=== PATIENT | male | born 1955 | race African-American/Black ===

== ENCOUNTER → 2020-04-12 | Outpatient (CLI) | payer OTHER ==
[~2020-04-12] MED LIST: ALLO100T PO
== END ==
LOC: CARD 08:30
PROVIDERS: ATTEND Internal Medicine Interventional Cardiology
DX: R07.2 Precordial pain (principal); R06.02 Shortness of breath; I73.9 Peripheral vascular disease, unspecified; E11.51 Type 2 diabetes mellitus with diabetic peripheral angiopathy without gangrene; I10 Essential (primary) hypertension; E78.01 Familial hypercholesterolemia; I07.1 Rheumatic tricuspid insufficiency
CPT/HCPCS: 93306

== ENCOUNTER → 2020-04-15 | Outpatient (CLI) | payer OTHER ==
[~2020-04-15] VITALS: Ht 172 cm; Wt 102.0 kg
[~2020-04-15] MED LIST changes: +CATHETER FLUSH 10 ML SYR IV PRN; +REGADENOSON 0.4 MG/5 ML SYR (LEXISCAN) IV ONE
[2020-04-15 09:03] VITALS: BP 171/95
--- NOTE | 2020-04-17 14:18 | Cardiology Stress Test Report ---
Stress Test Report Type of NM Stress Test: Test Type: LEXISCAN 0.4MG/5ML Date of Procedure/Referring: Date of Procedure: April 15, 2020 PCP Eladio Gibbs MD Admitting Physician Center/[facility] Indications: Chest pain Baseline Heart Rate: 70 Baseline Blood Pressure: Blood Pressure Systolic: 171 Blood Pressure Diastolic: 95 Baseline EKG: Baseline EKG: Sinus rhythm Summary & Conclusion: Summary: The patient was brought to the stress lab after informed consent was taken. Stress test was performed according to the Lexiscan protocol. 0.4 mg of IV Lexiscan was given. Low-grade exercise was performed. Baseline EKG showed sinus rhythm at 70 BPM and blood pressure 153/76 mmHg. Maximum heart rate of 82 bpm and blood pressure 177/84 mmHg. Patient did not have any chest pain, arrhythmias or ST segment changes during the stress test. 10.64 mCi of Myoview were given for rest imaging and 32.2 mCi of Myoview given for stress imaging. Transient ischemic dilatation score 1.02, EF 72 percent. Normal wall motion. Normal myocardial perfusion imaging during rest and stress. Conclusion: Pharmacological stress test was negative for ischemia. Normal LV function with no wall motion abnormalities. Normal myocardial perfusion imaging during rest and stress. Eladio GIBBS MD April 17, 2020 14:18
== END ==
LOC: CARD 07:57
PROVIDERS: ATTEND Internal Medicine Interventional Cardiology
DX: R07.2 Precordial pain (principal); E11.51 Type 2 diabetes mellitus with diabetic peripheral angiopathy without gangrene; I10 Essential (primary) hypertension; I73.9 Peripheral vascular disease, unspecified; E78.01 Familial hypercholesterolemia; R06.02 Shortness of breath
CPT/HCPCS: 78452; 93017

== ENCOUNTER 2021-12-16 05:28 | Outpatient (RCR) | payer MEDICARE, OTHER ==
[~2021-12-16] VITALS: Ht 172.7 cm; Wt 100.2 kg
[~2021-12-16 05:28] MED LIST changes: +AMLO-251 PO; +ASPI-999 PO; +ATOR80TA76 PO; -CATHETER FLUSH 10 ML SYR IV PRN; +GBPN600T PO; +LISI40TA9 PO; +METO100T12 PO; +MULT-1136 PO; +OMEP40CA6 PO; -REGADENOSON 0.4 MG/5 ML SYR (LEXISCAN) IV ONE
== END 2021-12-19 10:35 | disposition home or self-care (01) ==
LOC: PREOP 05:28
PROVIDERS: ATTEND Surgery
DX: Z01.812 Encounter for preprocedural laboratory examination (principal); Z12.11 Encounter for screening for malignant neoplasm of colon; K21.9 Gastro-esophageal reflux disease without esophagitis; Z20.822 Contact with and (suspected) exposure to COVID-19
CPT/HCPCS: 87635

== ENCOUNTER 2021-12-20 08:03 | Day surgery (SDC) | payer MEDICARE, OTHER ==
[~2021-12-20] VITALS: Ht 172.7 cm; Wt 100.2 kg
[2021-12-20] MEDS ORDERED: LACTATED RINGERS 1,000 ML IV ONE (08:07)
[2021-12-20] MEDS ORDERED: LACTATED RINGERS 1,000 ML IV STA (08:09)
[2021-12-20] MEDS ORDERED: HURRICAINE EXT TUBE (BENZOCAINE) XX PRN (08:15)
[2021-12-20 08:28] VITALS: BP 157/95
[2021-12-20] MEDS ORDERED: PROPOFOL INJECTION 50 ML IV ONE (08:32)
--- NOTE | 2021-12-20 08:36 | Progress Note-Pre Operative ---
Pre-Operative Progress Note H&P Reviewed The H&P was reviewed, patient examined and no changes noted. Date Seen by Provider: Dec 20, 2021 Time Seen by Provider: 08:36 Date H&P Reviewed: Dec 20, 2021 Time H&P Reviewed: 08:36 Pre-Operative Diagnosis: family hx colon cancer, gerd TRINIDAD DYER DO Dec 20, 2021 08:36
[2021-12-20 09:15] VITALS: BP 103/67
[2021-12-20 09:20] VITALS: BP 130/74
--- NOTE | 2021-12-20 09:25 | Progress Note-Post Operative ---
Post-Operative Progess Note Surgeon (s)/Corporate Financial Analyst (s) Surgeon TRINIDAD DYER DO Corporate Financial Analyst: na Pre-Operative Diagnosis family hx colon cancer, gerd Post-Operative Diagnosis reflux esophagitis, sigmoid polyp Procedure & Operative Findings Date of Procedure 12/20/21 Procedure Performed/Findings egd c biopsies colonoscopy c snare polypectomy and santy inking Anesthesia Type per senior validation engineer Estimated Blood Loss Estimated blood loss (mL): none Specimens/Packing Specimens Removed antrum, ge, sigmoid polyp TRINIDAD DYER DO Dec 20, 2021 09:25
--- NOTE | 2021-12-20 09:28 | Discharge Inst-Simple/Standard ---
Discharge Inst-Standard Patient Instructions/Follow Up Plan of Care/Instructions/FU: 2 weeks Lars Activity as Tolerated: Yes Discharge Diet: Regular Diet TRINIDAD DYER DO Dec 20, 2021 09:28
[2021-12-20 09:30] VITALS: BP 130/74
[2021-12-20 09:48] VITALS: BP 130/74
--- NOTE | 2021-12-20 10:19 | Anesthesia-General Post-Op ---
MAC Patient Condition Mental Status/LOC: Same as Preop Cardiovascular: Satisfactory Nausea/Vomiting: Absent Respiratory: Satisfactory Pain: Controlled Complications: Absent Post Op Complications Complications None Follow Up Care/Instructions Patient Instructions None needed. Anesthesiology Discharge Order Discharge Order Patient is doing well, no complaints, stable vital signs, no apparent adverse anesthesia problems. No complications reported per nursing. JAYSON SOLIS CRNA Dec 20, 2021 10:19
--- NOTE | 2021-12-20 15:50 | OPERATIVE REPORT ---
DATE OF SERVICE: 12/20/2021 PREOPERATIVE DIAGNOSES: Family history of colon cancer. Gastroesophageal reflux disease. POSTOPERATIVE DIAGNOSES: Reflux esophagitis, sigmoid colon polyp. PROCEDURE: EGD with biopsies, colonoscopy with snare polypectomy and Ayesha inking. SURGEON: Trinidad Sousa DO. ANESTHESIA: Per [employer] LIGHT. ESTIMATED BLOOD LOSS: None. COMPLICATIONS: None. INDICATIONS: The patient is a 66-year-old male with family history of colon cancer and reflux. He understands risks and benefits of procedure and wished to proceed. Consent was signed in the chart. DESCRIPTION OF PROCEDURE: The patient was taken to endoscopy suite, placed in left lateral recumbent position. Timeout was performed. Scope was inserted in mouth, down the esophagus, stomach and into the duodenum without difficulty. There were no polyps, masses or ulcerations within the duodenum. Scope was slowly retracted back into the stomach where it was further insufflated. No polyps, masses or ulcerations. Biopsy of the antrum was obtained. Scope was retroflexed noting no other pathology. Scope was returned to its normal position, slowly withdrawn to distal esophagus. Biopsy of GE junction was obtained. Evidence of some reflux esophagitis present. Scope was slowly retracted back to completely remove, noting no other pathology. Digital rectal exam was performed. No palpable polyps, masses or ulcerations. Scope was inserted in the rectum and advanced all the way to cecum with minimal difficulty. Prep was adequate with irrigation and suction. Scope was slowly retracted back. No polyps, masses or ulcerations within the cecum, ascending, transverse and descending colon. In the sigmoid colon, a polyp was present, which had some appearance of some previous bleeding present. Snare polypectomy was performed and specimen was obtained. Just distal to the area, Ayesha ink was injected in two different locations for a total of 2 mL, 1 mL in each location. Scope was then continuously retracted back into the rectum, where it was also retroflexed noting no other pathology. Scope was returned to its normal position, slowly withdrawn until completely removed. The patient tolerated the procedure well without any complications, taken to recovery room in stable condition. RECOMMENDATIONS: The patient will continue on current medications. We will evaluate the pathology in 2 weeks. We would likely repeat colonoscopy in one year to reevaluate the area of the polyp. Job ID: [id number] DocumentID: [id number] Dictated Date: 12/20/2021 09:33:04 Lens Mold Setter Date: 12/20/2021 15:49:37 Dictated By: TRINIDAD SOUSA DO
== END 2021-12-20 09:50 | disposition home or self-care (01) ==
LOC: ENDO 08:03
PROVIDERS: ATTEND Surgery
DX: Z12.11 Encounter for screening for malignant neoplasm of colon (principal); K21.00 Gastro-esophageal reflux disease with esophagitis, without bleeding; K63.5 Polyp of colon; Z80.0 Family history of malignant neoplasm of digestive organs; E11.9 Type 2 diabetes mellitus without complications; I10 Essential (primary) hypertension; E78.49 Other hyperlipidemia; E78.01 Familial hypercholesterolemia; K42.9 Umbilical hernia without obstruction or gangrene; Z87.891 Personal history of nicotine dependence; Z79.899 Other long term (current) drug therapy; E66.9 Obesity, unspecified; Z68.33 Body mass index [BMI] 33.0-33.9, adult
CPT/HCPCS: 88305

== ENCOUNTER 2022-01-26 05:36 | Outpatient (CLI) | payer MEDICARE ==
[~2022-01-26] VITALS: Ht 172.7 cm; Wt 98.6 kg
== END 2022-01-26 09:59 | disposition home or self-care (01) ==
LOC: PREOP 05:36
PROVIDERS: ATTEND Surgery
DX: Z01.818 Encounter for other preprocedural examination (principal)

== ENCOUNTER 2022-02-02 08:36 | Day surgery (SDC) | payer MEDICARE ==
[2022-02-02] VITALS (11 sets, daily range): BP systolic 122–150; BP diastolic 66–90
[~2022-02-02] VITALS: Ht 172 cm; Wt 98.6 kg
[2022-02-02] MEDS ORDERED: ceFAZolin 2 GM IV Premixed 50 ML IV ONE (09:15)
--- NOTE | 2022-02-02 09:41 | Progress Note-Pre Operative ---
Pre-Operative Progress Note H&P Reviewed The H&P was reviewed, patient examined and no changes noted. Date Seen by Provider: Feb 02, 2022 Time Seen by Provider: 09:40 Date H&P Reviewed: Feb 02, 2022 Time H&P Reviewed: 09:40 Pre-Operative Diagnosis: umbilical hernia TRINIDAD DYER DO Feb 02, 2022 09:41
[2022-02-02] MEDS: LACTATED RINGERS 1,000 ML IV PRN ×2 (09:45→12:53)
[2022-02-02] MEDS ORDERED: MIDAZOLAM 2 MG/2 ML (VERSED) VIAL ONE (11:44)
[2022-02-02] MEDS ORDERED: fentaNYL INJ 100 MCG/2 ML AMP ONE ×2 (11:44→14:04)
[2022-02-02] MEDS ORDERED: LIDOCAINE/EPI 1%-1:200,000 (XYLOCAINE) 30 ML VIAL ONE (11:46)
[2022-02-02] MEDS ORDERED: ONDANSETRON 4 MG/2 ML (SDV) Z0FRAN ONE (13:05)
[2022-02-02] MEDS ORDERED: LIDOCAINE PF 2% 5 ML (XYLOCAINE) VIAL ONE (13:05)
[2022-02-02] MEDS ORDERED: PHENYLEPHRINE 100 MCG/ML 10 ML (ANESTHESIA) SYR ONE (13:05)
[2022-02-02] MEDS ORDERED: ROCURONIUM 10 MG/ML 5 ML SYRINGE IV ONE (13:05)
[2022-02-02] MEDS ORDERED: proPOfol 200 MG/20 ML (DIPRIVAN) VIAL IV ONE (13:05)
[2022-02-02] MEDS ORDERED: GLYCOPYRROLATE 0.2 MG/ML (ROBINUL) 2 ML VIAL ONE (14:10)
[2022-02-02] MEDS ORDERED: NEOSTIGMINE 3 MG/3 ML VIAL ONE (14:10)
[2022-02-02] MEDS ORDERED: SEVOFLURANE (ULTANE) 15 ML INHAL SOLN ONE (14:10)
--- NOTE | 2022-02-02 14:25 | Anesthesia-General Post-Op ---
General Patient Condition Mental Status/LOC: Same as Preop Cardiovascular: Satisfactory Nausea/Vomiting: Absent Respiratory: Satisfactory Pain: Controlled Complications: Absent Post Op Complications Complications None Follow Up Care/Instructions Patient Instructions None needed. Anesthesia/Patient Condition Patient Condition Patient is doing well, no complaints, stable vital signs, no apparent adverse anesthesia problems. No complications reported per nursing. GIBRAN SERRANO CRNA Feb 02, 2022 14:25
[2022-02-02] MEDS ORDERED: HYDROmorphone 2 MG/ML VIAL (DILAUDID) IV ONE (14:30)
[2022-02-02] MEDS ORDERED: ONDANSETRON 4 MG/2 ML (SDV) Z0FRAN IVP PRN (14:30)
--- NOTE | 2022-02-02 14:30 | Progress Note-Post Operative ---
Post-Operative Progess Note Surgeon (s)/Manager Photography (s) Surgeon TRINIDAD DYER DO Manager Photography: Dr. Alex Pre-Operative Diagnosis umbilical hernia Post-Operative Diagnosis umbilical and ventral hernia Procedure & Operative Findings Date of Procedure 02/02/22 Procedure Performed/Findings robotic incarcerated umbilical and ventral hernia repair Anesthesia Type general Estimated Blood Loss Estimated blood loss (mL): minimal Specimens/Packing Specimens Removed na TRINIDAD DYER DO Feb 02, 2022 14:30
[2022-02-02] MEDS ORDERED: DOCU-143 PO (14:35)
[2022-02-02] MEDS ORDERED: ACHD5005 PO (14:35)
--- NOTE | 2022-02-02 14:37 | Discharge Inst-Simple/Standard ---
Discharge Inst-Standard Discharge Medications New, Converted or Re-Newed RX: Transmitted to Pharmacy Patient Instructions/Follow Up Plan of Care/Instructions/FU: 2 weeks héctor Activity as Tolerated: No Discharge Diet: Regular Diet Other Inst to Patient Follow up Appt: Make appointment for 2 week. Instructions: No lifting greater than 10 pounds. No strenuous activity. May shower in 24 hours, no tub bath or soaking. Use incentive spirometer at home as directed. No Smoking Skin/Wound Care: You have special glue over your incision that will fall off on it's own. Symptoms to Report: Appetite Changes, Extremity Discoloration, Numbness/Tingling, Swelling Increased, Bleeding Excessive, Eyesight Changes, Pain Increased, Urine Color Change, Constipation(Persistent), Fever over 101 degree F, Pain/Pressure in chest, Urinating Difficulty, Cough Up/Vomit Blood, Heart Beat Irreg/Pounding, Pain/Pressure in jaw, Vaginal Bleeding Increase, Cramps in feet or legs, Lightheadedness, Pain/Pressure in shoulder, Diarrhea(Persistent), Memory Changes Suddenly, Questions/Concerns, Weight gain consecutive days, Dizziness/Fainting, Nausea/Vomiting, Shortness of Breath, Weight gain over 2 pounds If questions or concerns contact your physician Or seek help at emergency department. TRINIDAD DYER DO Feb 02, 2022 14:37
[2022-02-02] MEDS ORDERED: HYDROcodone/APAP 5 MG/325 MG (LORTAB) TAB ONE (15:25)
[2022-02-02] MEDS ORDERED: HYDROcodone/APAP 5 MG/325 MG (LORTAB) TAB PO ONE (15:30)
--- NOTE | 2022-02-03 00:46 | OPERATIVE REPORT ---
DATE OF SERVICE: 02/02/2022 PREOPERATIVE DIAGNOSIS: Umbilical hernia, incarcerated. POSTOPERATIVE DIAGNOSES: Incarcerated umbilical hernia. Incarcerated ventral hernia. PROCEDURE: Robotic incarcerated umbilical and incarcerated ventral hernia repair with mesh. SURGEON: Trinidad Sousa DO THERMITE BOMB LOADER: Dr. Alex, assisted in retraction, dissection and closure. ANESTHESIA: General. ESTIMATED BLOOD LOSS: Minimal. COMPLICATIONS: None. INDICATIONS: The patient is a 66-year-old male with umbilical hernia. He understands risks and benefits of procedure and wished to proceed. Consent was signed in the chart. DESCRIPTION OF PROCEDURE: The patient was taken to the operating suite, was prepped and draped in sterile fashion. Timeout was performed. Local anesthetic was infiltrated in left upper quadrant. An 11-blade scalpel was used to make a small skin incision. Cautery was used to dissect down to the fascia, which was scored. The muscle was divided. The posterior fascia was then divided, and the abdomen was then entered. A 12 mm balloon trocar was inserted, and pneumoperitoneum was achieved. Scope was inserted and under visualization of the laparoscope, two 8 mm trocars were placed along the left side of the abdomen. The abdomen was inspected. There was umbilical hernia, which had fat-containing hernia and also just above this was an internal hernia, which had fat containing contents as well. The robot was then docked. The scissors with cautery were then used to begin to be dividing the falciform ligament and reducing the hernia contents until both hernia contents were removed. The fat pad was then taken inferiorly as well. The defect was then closed with 0 V-Loc permanent. An Echo 10 x 15 cm mesh was inserted in the abdomen and grasped with a Murali-Garth through a stab incision at the umbilicus. A 2-0 V-Loc 180 was used to sew the mesh in circumferentially. Then, also down the middle of the mesh after the balloon was removed. The abdomen was then desufflated. The trocars were removed. The 12 mm fascial defect was then closed using 0 Vicryl in a [id number] fashion. The skin was then closed using 4-0 Monocryl in subcuticular fashion. The abdomen was then washed and dried and Skin Affix was placed over the incisions. The patient tolerated procedure well without any complications, was taken to recovery room in stable condition. CC: [facility] - requested, unable to deliver Job ID: [id number] DocumentID: [id number] Dictated Date: 02/02/2022 20:37:23 Organizational Effectiveness Consultant Date: 02/03/2022 00:46:17 Dictated By: TRINIDAD SOUSA DO
== END 2022-02-02 16:47 | disposition home or self-care (01) ==
LOC: SDC 08:36
PROVIDERS: ATTEND Surgery
DX: K42.0 Umbilical hernia with obstruction, without gangrene (principal); K43.6 Other and unspecified ventral hernia with obstruction, without gangrene; K21.00 Gastro-esophageal reflux disease with esophagitis, without bleeding; Z80.0 Family history of malignant neoplasm of digestive organs; Z87.891 Personal history of nicotine dependence; Z79.82 Long term (current) use of aspirin; Z79.899 Other long term (current) drug therapy
CPT/HCPCS: 87081

== ENCOUNTER → 2022-04-25 | Outpatient (CLI) | payer MEDICARE ==
[~2022-04-25] MED LIST changes: +ACHD5005 PO; +DOCU-143 PO
--- NOTE | 2022-04-25 16:59 | Diagnostic Imaging Report ---
INDICATION: Postmenopausal screening for osteoporosis COMPARISON: None FINDINGS: AP Spine L1-L4: [BMD (g/cm2): 0.843] [T-Score: -3.3] [Z-Score: -4.3] [BMD Previous: NA] [BMD % Change: NA] LT Hip Neck: [BMD (g/cm2): 1.237] [T-Score: 1.3] [Z-Score: 0.9] LT Hip Total: [BMD (g/cm2):1.017] [T-Score:-0.6] [Z-Score: -1.4] [BMD Previous: NA] [BMD % Change: NA] RT Hip Neck: [BMD (g/cm2):0.985] [T-Score:-0.7] [Z-Score:-1.0] RT Hip Total: [BMD (g/cm2):0.953] [T-score:-1.0] [Z-Score:-1.8] [BMD Previous:NA] [BMD % Change:NA] *Indicates significant change from prior examination based on 95% confidence level. World Health Organization criteria for BMD interpretation classify patients as Normal (T-score at or above -1.0), Osteopenic (T-score between -1.0 and -2.5) or Osteoporotic (T-score at or below -2.5). LIMITATIONS AND MODIFICATION: None. FRACTURE RISK (FRAX SCORE): The ten year probability of (%): Major Osteoporotic Fracture: [4.7] Hip Fracture: [0.4] IMPRESSION: 1. Osteoporosis. 2. Baseline examination. 3. See below National Osteoporosis Foundation guidelines on when to potentially initiate pharmacologic therapy. Based on the National Osteoporosis Foundation Guidelines, pharmacologic treatment should be initiated in any of the following, unless clinical conditions suggest otherwise: * Any patient with prior fragility fracture of the hip or vertebrae. A spine fracture indicates 5X risk for subsequent spine fracture and 2X risk for subsequent hip fracture. * Osteoporosis (T-score <-2.5). * Postmenopausal women and men age 50 and older with low bone mass/osteopenia (T-score between -1.0 and -2.5) by DXA and 10-year major osteoporotic fracture greater than 20% or a 10-year probability of hip fracture greater than 3%. These fracture risks are supplied above in the FRAX score, if applicable. * Clinician judgement and/or patient preferences may indicate treatment for people with 10-year fracture probabilities above or below these levels. Dictated by: Dictated on workstation # [id number]
== END ==
LOC: RAD 11:00
PROVIDERS: ATTEND Nurse Practitioner
DX: Z13.820 Encounter for screening for osteoporosis (principal); M81.0 Age-related osteoporosis without current pathological fracture; M87.052 Idiopathic aseptic necrosis of left femur
CPT/HCPCS: 77080

== ENCOUNTER → 2022-04-28 | Outpatient (CLI) | payer MEDICARE | LOC: CARD 10:00 | PROVIDERS: ATTEND Internal Medicine Cardiovascular Disease | DX: I11.9 Hypertensive heart disease without heart failure (principal); I35.8 Other nonrheumatic aortic valve disorders | CPT/HCPCS: 93306 ==